=== PATIENT | male | born 1990 | race Caucasian/White ===

== ENCOUNTER 2017-11-11 19:44 | Emergency (ER) | payer BC ==
[~2017-11-11] VITALS: Ht 180.3 cm; Wt 70.0 kg
[2017-11-11] MEDS ORDERED: ONDANSETRON HCL 4MG/2ML INJ IV STA (21:26)
[2017-11-11] MEDS ORDERED: SODIUM CHLORIDE 0.9% 1,000 ML IV ONE ×2 (21:26→23:58)
[2017-11-11] MEDS ORDERED: LORAZEPAM 2MG/ML CPJ IV STA (21:26)
[2017-11-11] MEDS ORDERED: BACITRACIN ZINC OINT UDPKT TOP ONE (21:30)
[2017-11-11] MEDS ORDERED: TETANUS, DIPHTHERIA, PERTUSSIS VAC/PF 0.5ML (>7YR OLD) IM ONE (21:30)
[2017-11-11 22:07] LABS: CHLORIDE 110 mEq/L (98-107)
[2017-11-11 22:08] LABS: BASOPHILS % 0.3 % (0.0-2.0); EOSINOPHILS % 0.7 % (0.0-5.0); HEMOGLOBIN. 13.8 g/dL (14.0-18.0); LYMPHOCYTES % 18.6 % (20.0-50.0); MEAN CORPUSCULAR HEMOGLOBIN 32.3 pg (28.0-32.0); MEAN CORPUSCULAR VOLUME 93.7 fL (80.0-94.0); MEAN PLATELET VOLUME 7.5 fl (7.4-10.4); NEUTROPHILS % 72.4 % (40.0-76.0); PLATELET 282 x1000/uL (130-400); RED BLOOD CELL COUNT 4.27 mill/uL (4.7-6.1); RED CELL DISTRIBUTION WIDTH 13.2 % (11.6-14.6)
[2017-11-11 22:11] LABS: ETHANOL BLOOD 210 mg/dL
[2017-11-11 22:15] LABS: CREATINE KINASE 502 IU/L (39-308)
[2017-11-11 22:28] LABS: CLARITY URINE CLEAR (CLEAR); COLOR URINE YELLOW (YELLOW); KETONES URINE NEGATIVE (NEGATIVE); LEUKOCYTE ESTERASE URINE NEGATIVE (NEGATIVE); NITRITE URINE NEGATIVE (NEGATIVE); OCCULT BLOOD URINE NEGATIVE (NEGATIVE); PH URINE 6.5 (4.5-8.0); PROTEIN URINE 2+ (NEGATIVE); SPECIFIC GRAVITY URINE 1.004 (1.005-1.030)
[2017-11-11 22:37] LABS: *AMPHETAMINES SCREEN URINE PRESUMTIVE POSITIVE (NEGATIVE); *BARBITURATES SCREEN URINE NEGATIVE (NEGATIVE); *BENZODIAZEPINES SCREEN URINE NEGATIVE (NEGATIVE); *COCAINE SCREEN URINE NEGATIVE (NEGATIVE); CANNABINOID URINE SCREEN PRESUMTIVE POSITIVE (NEGATIVE); METHADONE URINE SCREEN NEGATIVE (NEGATIVE); OPIATES URINE SCREEN NEGATIVE (NEGATIVE); PHENCYCLIDINE URINE SCREEN NEGATIVE (NEGATIVE)
[2017-11-12 04:25] VITALS: BP 110/72
== END 2017-11-12 04:28 | disposition home or self-care (01) ==
LOC: ER 19:44
DX: T51.0X1A Toxic effect of ethanol, accidental (unintentional), initial encounter (principal); G92 Toxic encephalopathy; F15.10 Other stimulant abuse, uncomplicated; Y92.89 Other specified places as the place of occurrence of the external cause; M62.82 Rhabdomyolysis; F91.8 Other conduct disorders; Z78.1 Physical restraint status; Z23 Encounter for immunization
CPT/HCPCS: 36415; 80053; 80305; 81003; 82550; 83690; 84443; 84484; 85025; 90471; 90715; 93005; 96361; 96374; 96375; 99285; G0482; J2060; J2405; J7030; Z7610

== ENCOUNTER 2018-07-02 01:42 | Emergency (ER) | payer BC, MEDICAID ==
[~2018-07-02] VITALS: Ht 175.3 cm; Wt 78.0 kg
[2018-07-02] MEDS: HALOPERIDOL LACTATE 5MG/ML VIAL IM ONE ×3 (03:05→07:04)
[2018-07-02] MEDS: DIPHENHYDRAMINE 50MG/ML VIAL IM ONE (04:34)
[2018-07-02 04:36] LABS: BASOPHILS % 0.5 % (0.0-2.0); EOSINOPHILS % 0.5 % (0.0-5.0); HEMATOCRIT. 37.4 % (42.0-52.0); HEMOGLOBIN. 12.7 g/dL (14.0-18.0); LYMPHOCYTES % 15.7 % (20.0-50.0); MEAN CORPUSCULAR HEMOGLOBIN 31.5 pg (28.0-32.0); MEAN CORPUSCULAR VOLUME 92.8 fL (80.0-94.0); MEAN PLATELET VOLUME 7.3 fl (7.4-10.4); MONOCYTES % 11.6 % (2.0-8.0); NEUTROPHILS % 71.7 % (40.0-76.0); PLATELET 200 x1000/uL (130-400); RED BLOOD CELL COUNT 4.03 mill/uL (4.7-6.1); RED CELL DISTRIBUTION WIDTH 12.6 % (11.6-14.6)
[2018-07-02 04:42] LABS: CHLORIDE 105 mEq/L (98-107)
[2018-07-02 04:46] LABS: ETHANOL BLOOD < 10 mg/dL
[2018-07-02] MEDS: LORAZEPAM 2MG/ML CPJ IM ONE ×2 (06:06→07:04)
[2018-07-02] MEDS: LIDOCAINE 1%/EPI 1:100,000 10 ML VIAL IJ ONE (07:15)
[2018-07-02] MEDS: POTASSIUM CHLORIDE 20MEQ TABLET SR PO ONE (07:30)
[2018-07-02 10:04] LABS: CLARITY URINE CLEAR (CLEAR); COLOR URINE YELLOW (YELLOW); KETONES URINE 1+ (NEGATIVE); LEUKOCYTE ESTERASE URINE NEGATIVE (NEGATIVE); NITRITE URINE NEGATIVE (NEGATIVE); OCCULT BLOOD URINE TRACE (NEGATIVE); PH URINE 5.5 (4.5-8.0); PROTEIN URINE NEGATIVE (NEGATIVE); SPECIFIC GRAVITY URINE 1.018 (1.005-1.030)
[2018-07-02 10:15] LABS: *AMPHETAMINES SCREEN URINE PRESUMTIVE POSITIVE (NEGATIVE); *BARBITURATES SCREEN URINE NEGATIVE (NEGATIVE); *BENZODIAZEPINES SCREEN URINE PRESUMTIVE POSITIVE (NEGATIVE); *COCAINE SCREEN URINE NEGATIVE (NEGATIVE)
[2018-07-02 10:16] LABS: CANNABINOID URINE SCREEN PRESUMTIVE POSITIVE (NEGATIVE); METHADONE URINE SCREEN NEGATIVE (NEGATIVE); OPIATES URINE SCREEN NEGATIVE (NEGATIVE); PHENCYCLIDINE URINE SCREEN NEGATIVE (NEGATIVE)
[2018-07-02] MEDS: LIDOCAINE HCL/EPINEPHRINE 1%-EPI 1:100,000 20 ML VIAL INFIL NR (10:30)
[2018-07-02] MEDS: DEXT 5% WATER + KCL 40MEQ/L 1,000 ML IV ONE (12:44)
[2018-07-02] MEDS: BACITRACIN ZINC OINT UDPKT TOP ONE (13:00)
[2018-07-02 16:20] VITALS: BP 106/72
== END 2018-07-02 16:40 | disposition home or self-care (01) ==
LOC: ER 01:42
DX: S01.411A Laceration without foreign body of right cheek and temporomandibular area, initial encounter (principal); S01.111A Laceration without foreign body of right eyelid and periocular area, initial encounter; F15.10 Other stimulant abuse, uncomplicated; J45.909 Unspecified asthma, uncomplicated; X58.XXXA Exposure to other specified factors, initial encounter; Y93.89 Activity, other specified; Y92.89 Other specified places as the place of occurrence of the external cause; Y99.8 Other external cause status
CPT/HCPCS: 36415; 70450; 70486; 72125; 80053; 80305; 80307; 80320; 80329; 81003; 85025; 96365; 96366; 96372; 99284; J1200; J1630; J2060; J3490; J7060; Z7610; G0480

== ENCOUNTER 2018-07-04 18:21 | Emergency (ER) | payer MEDICAID ==
[~2018-07-04] VITALS: Ht 182.9 cm; Wt 68.0 kg
[2018-07-04] MEDS ORDERED: KETOROLAC 60MG/2ML VIAL IM STA (20:57)
[2018-07-04 21:41] VITALS: BP 102/53
== END 2018-07-04 21:42 | disposition home or self-care (01) ==
LOC: ER 18:21
DX: S02.40CA Maxillary fracture, right side, initial encounter for closed fracture (principal); S02.81XA Fracture of other specified skull and facial bones, right side, initial encounter for closed fracture; S02.2XXA Fracture of nasal bones, initial encounter for closed fracture; J45.909 Unspecified asthma, uncomplicated; F15.10 Other stimulant abuse, uncomplicated; W01.0XXA Fall on same level from slipping, tripping and stumbling without subsequent striking against object, initial encounter; Y93.89 Activity, other specified; Y92.89 Other specified places as the place of occurrence of the external cause; Y99.8 Other external cause status
CPT/HCPCS: 96372; 99283; J1885

== ENCOUNTER 2019-05-06 17:27 | Emergency (ER) | payer SELFPAY | END 2019-05-06 19:01 | disposition left against medical advice (07) | LOC: ER 17:27 | DX: M79.89 Other specified soft tissue disorders (principal); Z53.21 Procedure and treatment not carried out due to patient leaving prior to being seen by health care provider ==

== ENCOUNTER 2019-05-08 22:01 | Emergency (ER) | payer SELFPAY ==
[~2019-05-08] VITALS: Ht 182.9 cm; Wt 73.0 kg
[2019-05-09] MEDS ORDERED: HYDROCODONE/ACETAMINOPHEN 5/325MG TABLET PO ONE (03:45)
[2019-05-09 04:28] VITALS: BP 125/80
== END 2019-05-09 04:28 | disposition home or self-care (01) ==
LOC: ER 22:01
DX: S52.252A Displaced comminuted fracture of shaft of ulna, left arm, initial encounter for closed fracture (principal); W01.10XA Fall on same level from slipping, tripping and stumbling with subsequent striking against unspecified object, initial encounter; Y93.89 Activity, other specified; Y92.89 Other specified places as the place of occurrence of the external cause; F15.10 Other stimulant abuse, uncomplicated
CPT/HCPCS: 73070; 73090; 73110; 73130; 99284